=== PATIENT | male | born 1990 | race Caucasian/White ===

== ENCOUNTER 2023-08-23 14:19 | Outpatient (CLI) | payer MEDICAID, SELFPAY ==
[2023-08-23 23:39] LABS: Chlamydia DNA Amplified* NOT DETECTED (No Detected); GC DNA Amplified* NOT DETECTED (No Detected)
== END 2023-08-23 14:20 | disposition home or self-care (01) ==
LOC: NFLDUCREF 14:20
PROVIDERS: Visit Provider Nurse Practitioner
DX: Z11.3 Encounter for screening for infections with a predominantly sexual mode of transmission (principal); R30.0 Dysuria
CPT/HCPCS: 87491; 87591